=== PATIENT | female | born 1950 | race Caucasian/White ===

== ENCOUNTER 2020-06-24 14:59 | Inpatient (IN) | payer MEDICARE, OTHER ==
[~2020-06-24] VITALS: Ht 152.4 cm; Wt 90.3 kg
--- NOTE | 2020-06-24 15:15 | NUR ---
bib family, L sided chest pain (sharp/stabbing) since last night. Patient a/ox4, breathing even and unlabored, no sob noted. Needs attended. Kept comfortable. Placed to the film sorter.
--- NOTE | 2020-06-24 15:30 | NUR ---
IV LINE ESTABLISHED, BLOOD DRAWN AND SENT TO LAB.
[2020-06-24] MEDS ORDERED: GABA300C PO (15:46)
[2020-06-24] MEDS ORDERED: LINA72CA PO (15:46)
[2020-06-24] MEDS ORDERED: METF-442 PO (15:46)
[2020-06-24] MEDS ORDERED: EMPA10TA PO (15:46)
[2020-06-24] MEDS ORDERED: ATOR20TA PO (15:46)
[2020-06-24] MEDS ORDERED: TRAZ-252 PO (15:46)
[2020-06-24] MEDS ORDERED: DEXL60CA3 PO (15:46)
[2020-06-24] MEDS ORDERED: CARV12.52 PO (15:46)
[2020-06-24] MEDS ORDERED: ASPI-1420 PO (15:46)
[2020-06-24] MEDS ORDERED: GLIM4TAB37 PO (15:46)
[2020-06-24] MEDS ORDERED: HYDR-4077 PO (15:46)
[2020-06-24 15:52] LABS: BASOPHILS # (AUTO) 0.1 /CMM (0.0-0.2); BASOPHILS % (AUTO) 0.7 % (0.0-2.0); EOSINOPHILS % (AUTO) 2.4 % (0.0-6.0); HEMATOCRIT 35 % (33-45); HEMOGLOBIN 11.4 g/dL (11.5-14.8); LYMPHOCYTES # (AUTO) 1.7 /CMM (0.8-4.8); LYMPHOCYTES % (AUTO) 18.9 % (20.0-44.0); MEAN CORPUSCULAR HGB CONC 33 g/dl (31.0-36.0); MEAN CORPUSCULAR VOLUME 84 fL (82-100); MONOCYTES # (AUTO) 0.6 /CMM (0.1-1.30); NEUTROPHILS # (AUTO) 6.2 /CMM (1.8-8.9); PLATELET COUNT (AUTO) 381 /CMM (150-450); RED BLOOD CELL COUNT(AUTO) 4.14 MIL/uL (4.0-5.2); WHITE BLOOD COUNT (AUTO) 8.8 K/uL (4.3-11.0)
[2020-06-24 16:11] LABS: ALANINE AMINOTRANSFERASE 20 U/L (12-78); ALKALINE PHOSPHATASE 50 U/L (46-116); ASPARTATE AMINOTRANSFERASE 18 U/L (15-37); BILIRUBIN,DIRECT 0.1 mg/dL (0.0-0.2); BILIRUBIN,TOTAL 0.3 mg/dL (0.2-1.0); CALCIUM, SERUM 9.8 mg/dL (8.5-10.1); CARBON DIOXIDE 23 mmol/L (21-32); CHLORIDE 97 mmol/L (98-107); CREATININE 0.7 mg/dL (0.6-1.3); GLUCOSE 153 mg/dL (74-106); LIPASE 36 U/L (73-393); POTASSIUM 4.2 mmol/L (3.5-5.1); SODIUM SERUM 133 mmol/L (136-145); TOTAL PROTEIN, SERUM 8.1 g/dL (6.4-8.2); UREA NITROGEN, BLOOD 13 mg/dL (7-18)
--- NOTE | 2020-06-24 16:19 | NUR ---
PAGED [facility].
[2020-06-24] MEDS ORDERED: IOHEXOL-350 100 ML VIAL IV ONE (16:31)
[2020-06-24] MEDS ORDERED: CT SWABBABLE VALVE TRANS SET 1 EA INFUS.SET MC ONE (16:31)
[2020-06-24] MEDS ORDERED: IV NS 0.9% 250 ML IV ONE (16:31)
[2020-06-24] MEDS ORDERED: NITROGLYCERIN 0.4 MG/TAB BOTTLE ONE (16:44)
[2020-06-24] MEDS ORDERED: METOPROLOL TARTRATE INJ 5 MG/5 ML AMPUL ONE (16:45)
--- NOTE | 2020-06-24 16:45 | NUR ---
PATIENT WENT TO RADIOLOGY FOR CT.
--- NOTE | 2020-06-24 16:49 | NUR ---
NURSING SUP GAVE 322-2.
[2020-06-24] MEDS: METOPROLOL TARTRATE INJ 5 MG/5 ML AMPUL IVP PRN ×4 (16:50→17:05)
[2020-06-24] MEDS ORDERED: NITROGLYCERIN 0.4 MG/TAB BOTTLE SL ONE (17:00)
--- NOTE | 2020-06-24 17:10 | NUR ---
CTA PROCEDURE WELL TOLERATED BY THE PT. V/S STABLE, KEPT RESTED AND COMFORTABLE. REPORT GIVEN TO JOCELYNE العراقي FOR JOHANNA.
--- NOTE | 2020-06-24 17:53 | NUR ---
REPORT GIVEN TO GILMA CASANOVA FOR JOHANNA.
[2020-06-24] MEDS ORDERED: DEXTROSE 50%-WATER 50 ML DISP.SYRIN IV PRN (18:00)
[2020-06-24] MEDS ORDERED: DOCUSATE SODIUM 100 MG CAPSULE PO PRN (18:00)
[2020-06-24] MEDS ORDERED: NITROGLYCERIN 0.4 MG/TAB BOTTLE SL PRN (18:00)
[2020-06-24] MEDS ORDERED: MORPHINE SULFATE INJ 2 MG/ML DISP.SYRIN IV PRN (18:00)
[2020-06-24] MEDS ORDERED: ACETAMINOPHEN 325 MG TABLET PO PRN (18:00)
[2020-06-24] MEDS ORDERED: ONDANSETRON HCL/PF 4 MG/2 ML VIAL IVP PRN (18:00)
[2020-06-24] MEDS ORDERED: MAG HYDROX/AL HYDROX/SIMETH 30 ML UDC PO PRN (18:00)
--- NOTE | 2020-06-24 18:58 | NUR ---
patient transferred to room 322-2 via acls protocol. Patient endorsed to Libby CASANOVA. Patient in stable condition.
[2020-06-24 19:00] VITALS: BP 181/85
--- NOTE | 2020-06-24 19:00 | NUR ---
RN NOTES PATIENT IN THE ROOM A/O X3/ ARMENIA SPEAKER FEMALE. TELE MONITOR ON, VS TAKEN BP 181/85, P-74, R-20, T-98, O2-97 ROOM AIR. PATIENT REFUSED PAIN AT THIS TIME . PATIENT AMBULATORY, NEED ASSIST GOING BATHROOM. IV ACCESS ON RIGHT AC AREA G#18 INTACT. CALL LIGHT WITHIN TO REACH. BELONGING NEXT TO THE BED. ENDORSED ONCOMING NURSE FOLLOW PLAN OF CARE AND ADMISSION COMPUTER QUESTIONERS.
--- NOTE | 2020-06-24 20:44 | NUR ---
PRINCIPAL CLOUD ARCHITECT NOTES PATIENT IN ROOM WITH VISITOR. PATIENT STANDING UP, AMBULATING. NO S/S OF DISTRESS. NO C/O PAIN REGAN. V/S FOLLOW: BP- 154/81, T- 98.0, P- 83, RR- 20, 02 SAT- 98%. SAFETY IN PLACE: BED IN LOWEST, LOCKED POSITION, CALL LIGHT WITHIN REACH. WILL CONTINUE TO MONITOR.
[2020-06-24 20:47] VITALS: BP 154/81
[2020-06-24] MEDS: TRAZODONE 50 MG TABLET PO SCH ×2 (21:36→22:03)
[2020-06-24] MEDS: GABAPENTIN 300 MG CAPSULE PO SCH (22:03)
[2020-06-24] MEDS: ATORVASTATIN 10 MG TABLET PO SCH (22:04)
[2020-06-24] MEDS: BLOOD SUGAR DIAGNOSTIC 1 EACH STRIP VI SCH (22:11)
[2020-06-24] MEDS: *INSULIN REGULAR(HUMULIN R)HUM 100 UNIT/ML VIAL SQ PRN (22:34)
--- NOTE | 2020-06-24 22:35 | NUR ---
INSTRUCTIONAL SUPPORT ASSISTANT NOTES PATIENT BS @[phone]. GIVEN 6 UNITS OF INSULIN PER SLIDING SCALE. WILL MONITOR.
[2020-06-24 23:27] VITALS: BP 154/81
[2020-06-25] VITALS (21 sets, daily range): BP systolic 130–192; BP diastolic 61–114
[2020-06-25] MEDS: BLOOD SUGAR DIAGNOSTIC 1 EACH STRIP VI SCH ×4 (05:26→21:27)
--- NOTE | 2020-06-25 06:10 | NUR ---
CLINICAL INFORMATICS MANAGER NOTES PATIENT BS: 117. NO INSULIN PER SLIDING SCALE.
--- NOTE | 2020-06-25 06:11 | NUR ---
GEM EXPERT CLOSING 322 PATIENT IN BED WITH EYES CLOSED. A/OX4. PATIENT ABLE TO MAKE NEEDS KNOWN. ALL NEEDS ATTENDED. NO S/S OF DISTRESS. NO C/O PAIN. TELE MONITOR READING SR IN THE 70'S. ACCUCHECKS DONE. ALL SCHED MEDS ADMINISTERED. SAFETY KEPT IN PLACE THE WHOLE SHIFT: BED IN LOWEST, LOCKED POSITION; CALL LIGHT WITHIN REACH. NO SIGNIFICANT CHANGE SINCE LAST SHIFT. WILL ENDORSE CARE TO MORNING SHIFT NURSE. ENDORSED THE HOLD OF METFORMIN FOR 48 HOURS.
[2020-06-25 06:52] LABS: BASOPHILS # (AUTO) 0.1 /CMM (0.0-0.2); BASOPHILS % (AUTO) 0.8 % (0.0-2.0); EOSINOPHILS % (AUTO) 2.9 % (0.0-6.0); HEMATOCRIT 34 % (33-45); HEMOGLOBIN 11.3 g/dL (11.5-14.8); LYMPHOCYTES # (AUTO) 1.7 /CMM (0.8-4.8); LYMPHOCYTES % (AUTO) 24.1 % (20.0-44.0); MEAN CORPUSCULAR HGB CONC 33 g/dl (31.0-36.0); MEAN CORPUSCULAR VOLUME 84 fL (82-100); MONOCYTES # (AUTO) 0.6 /CMM (0.1-1.30); MONOCYTES % (AUTO) 8.2 % (2.0-12.0); NEUTROPHILS # (AUTO) 4.4 /CMM (1.8-8.9); PLATELET COUNT (AUTO) 362 /CMM (150-450); RED BLOOD CELL COUNT(AUTO) 4.03 MIL/uL (4.0-5.2); WHITE BLOOD COUNT (AUTO) 6.9 K/uL (4.3-11.0)
--- NOTE | 2020-06-25 07:30 | NUR ---
TELE/RN NOTES RECEIVED PATIENT ON BED, AWAKE ALERT AND ORIENTED X4. PATIENT IS ON ROOM AIR. PATIENT IN NO APPARENT RESPIRATORY DISTRESS NOTED. NO COMPLAINED OF PAIN AT THIS TIME. SINUS RHYTHM 66 BPM. WILL CONTINUE TO MONITOR.
[2020-06-25 07:33] LABS: ALBUMIN 3.8 g/dL (3.4-5.0); BILIRUBIN,TOTAL 0.3 mg/dL (0.2-1.0); CALCIUM, SERUM 9.7 mg/dL (8.5-10.1); CREATININE 0.6 mg/dL (0.6-1.3); PHOSPHORUS 4.1 mg/dL (2.5-4.9); POTASSIUM 3.8 mmol/L (3.5-5.1); TOTAL PROTEIN, SERUM 7.8 g/dL (6.4-8.2)
[2020-06-25 07:37] LABS: THYROID STIMULATING HORMONE 3.517 uIU/mL (0.358-3.74)
[2020-06-25] MEDS ORDERED: METFORMIN 500 MG TABLET PO SCH (09:00)
[2020-06-25] MEDS ORDERED: Medication Not On Formulary EA (Linaclotide (Linzess) 72 MCG) PO SCH (09:00)
[2020-06-25] MEDS ORDERED: Medication Not On Formulary EA (Empagliflozin (Jardiance) 10 MG) PO SCH (09:00)
[2020-06-25] MEDS: GLIMEPIRIDE 4 MG TABLET PO SCH ×2 (09:10→16:44)
[2020-06-25] MEDS: PANTOPRAZOLE 40 MG TABLET.DR PO SCH (09:10)
[2020-06-25] MEDS: ASPIRIN EC 81 MG TABLET.DR PO SCH (09:11)
[2020-06-25] MEDS: CARVEDILOL 12.5 MG TABLET PO SCH ×2 (09:11→16:43)
[2020-06-25] MEDS: hydrALAZINE HCL 50 MG TABLET PO SCH ×2 (09:11→16:44)
--- NOTE | 2020-06-25 12:00 | NUR ---
TELE/RN NOTES BS 264MG/DL PATIENT IS ON NPO INSULIN IS WITHHELD.
[2020-06-25] MEDS ORDERED: HEPARIN INFUSION/D5W 500 ML IV ONE ×2 (12:01→12:02)
[2020-06-25] MEDS ORDERED: IV SET PRIMARY PUMP SET 1 EA INFUS.SET MC ONE (12:05)
[2020-06-25] MEDS ORDERED: IV NS 0.9% 1,000 ML ONE (12:05)
--- NOTE | 2020-06-25 12:17 | NUR ---
TELE/RN NOTES PATIENT IS ALERT AND ORIENTED X4. PATIENT IS ON ROOM AIR. PATIENT IN NO APPARENT RESPIRATORY DISTRESS NOTED. NO COMPLAINED OF PAIN AT THIS TIME. PATIENT PLATE GLASS INSTALLER BY PATI RN FOR CARDIAC CATH.
[2020-06-25] MEDS ORDERED: NITROGLYCERIN ICAR 1,000 MCG/10 ML VIAL ICAR ONE (12:19)
[2020-06-25] MEDS ORDERED: IODIXANOL 150 ML IV ONE ×2 (12:19→13:39)
[2020-06-25] MEDS ORDERED: VERAPAMIL HCL IV 5 MG/2 ML VIAL ONE (12:19)
[2020-06-25] MEDS ORDERED: LIDOCAINE HCL/MPF 1% 30 ML VIAL IJ ONE (12:20)
[2020-06-25] MEDS ORDERED: HEPARIN SODIUM, PORCINE 1,000 UNIT/ML VIAL ONE (12:30)
[2020-06-25] MEDS ORDERED: MIDAZOLAM HCL 2 MG/2ML VIAL ONE (12:57)
[2020-06-25] MEDS ORDERED: FENTANYL PF 100MCG/2ML AMPUL ONE (12:57)
[2020-06-25] MEDS ORDERED: IODIXANOL 320MG/ML 50 ML IV ONE (13:21)
[2020-06-25] MEDS ORDERED: BIVALIRUDIN 250 MG/VIAL IV ONE (13:21)
[2020-06-25] MEDS ORDERED: IV NS 0.9% 50 ML IV ONE (13:22)
[2020-06-25] MEDS ORDERED: TICAGRELOR 90 MG TABLET PO ONE (13:23)
--- NOTE | 2020-06-25 14:55 | NUR ---
ICU/RN PT TRANSFER FROM FUR CLEANER.AWAKE,ALERT.V/S STABLE AFEBRILE .NO PAIN REPORTED AT THIS TIME.BS-190.SR-SB ON MONITOR.RIGHT WRIST TR BEND WITH A MINIMAL AMOUNT OF BLOODY DISCHARGE.WRIST IS SWOLLEN.PT IS NPO.FAMILY AT BEDSIDE.
--- NOTE | 2020-06-25 16:00 | NUR ---
ICU/RN PT C/O OF HOT FLUSHES IN THE HEART.BP 190/80.HR DECREASED 38-40 BPM .DUE MEDS ARE GIVEN ORDERED.DR FRANCOIS NOTIFIED.EKG ORDERED.FAMILY AT BED SIDE. ATIVAN ORDERED.PTREFUSEDMORHINE AND ATIVAN.CONTINUE MONITORING.
--- NOTE | 2020-06-25 16:20 | NUR ---
RN NOTES REPORT WAS GIVEN TO HAYLEY HUMAN RESOURCES DESIGNATE.
[2020-06-25] MEDS ORDERED: IV NS 0.9% 1,000 ML IV ONE (17:00)
[2020-06-25] MEDS ORDERED: LORAZEPAM 1 MG TABLET PO PRN (18:00)
[2020-06-25] MEDS: *INSULIN REGULAR(HUMULIN R)HUM 100 UNIT/ML VIAL SQ PRN ×2 (18:11→21:43)
--- NOTE | 2020-06-25 18:40 | NUR ---
ICU/RN PM CARE PROVIDED.PT USE BEDPAN WITH GOOD URINE OUTPUT .BP STABLE.PT EATS 100% FROM HER DINNER TRAY.TR BEND STILL ON PT HAS OOZING BLOOD .WRIST RED AND SWOLLEN.CONTINUE TO MONITOR.
--- NOTE | 2020-06-25 19:30 | NUR ---
RN NOTE RECEIVED PATIENT IN BED WITH DAUGHTER AT BEDSIDE, IN NO S/SX OF ACUTE DISTRESS AT THIS TIME. NO SOB NOTED. PATIENT'S BREATHING IS EVEN AND UNLABORED. SATURATION 98% ON ROOM AIR, SR ON THE MONITOR, HR IS 74. NOTED IV SITE L HAND 20G, AND RAC 18G, ALL HUBS PATENT AND FLUSHING WELL, NO S/S OF INFECTION OR INFILTRATION WITH NS INFUSING AT 100 ML/HR. PATIENT S/P CNC MACHINE PROGRAMMER TODAY, TR BAND ON INFLATED WITH TOTAL OF 14 ML, 8 ML, AND ADDITIONAL 4 ML REMOVED SUBSEQUENTLY BY BLANQUITA CASANOVA. NO SIGN OF ACTIVE BLEEDING NOTED. SAFETY MEASURES IMPLEMENTED. PATIENT BED ALARM IS ON. HEAD OF BED ELEVATED. BED IS LOCKED, IN LOWEST POSITION AND SIDE RAILS UP. CALL LIGHT WITHIN REACH OF THE PATIENT. WILL CONTINUE TO MONITOR AND REASSESS FOR ANY CHANGES.
[2020-06-25] MEDS: TRAZODONE 50 MG TABLET PO SCH (21:04)
[2020-06-25] MEDS: ATORVASTATIN 10 MG TABLET PO SCH (21:04)
[2020-06-25] MEDS: TICAGRELOR 90 MG TABLET PO SCH (21:04)
[2020-06-25] MEDS: GABAPENTIN 300 MG CAPSULE PO SCH (21:04)
--- NOTE | 2020-06-25 22:40 | NUR ---
RN NOTE TR BAND REMOVED COMPLETELY WITH SUPERVISOR SOAKERS PRESENT. NO SIGN OF ACTIVE BLEEDING NOTED. SITE WAS CLEANSED AND COVERED WITH TRANSPARENT DRESSING. WILL CONTINUE TO OBSERVE AND MONITOR FOR CHANGES.
--- NOTE | 2020-06-25 23:00 | NUR ---
RN NOTE NOTED SBP SUSTAINED AT 170-180'S. DR REEYS WAS NOTIFIED. ORDERS RECEIVED FOR HYDRALAZINE 10 MG IV Q6H PRN FOR SBP >170. OPENSTACK DEVELOPER MADE AWARE.
[2020-06-25] MEDS ORDERED: hydrALAZINE HCL IV 20 MG VIAL IV PRN (23:30)
[2020-06-26] VITALS (19 sets, daily range): BP systolic 123–187; BP diastolic 51–94
[2020-06-26] MEDS ORDERED: TEMAZEPAM 15 MG CAPSULE PO PRN (01:00)
[2020-06-26] MEDS ORDERED: TEMAZEPAM 7.5 MG CAPSULE PO PRN (01:00)
--- NOTE | 2020-06-26 01:00 | NUR ---
RN NOTE PATIENT STATED SHE IS UNABLE TO SLEEP. REQUESTING FOR MEDICATION TO HELP HER GET TO SLEEP. DR REYES WAS NOTIFIED, ORDERS RECEIVED BY PRECISION FARMING COORDINATOR FOR RESTORIL 7.5 MG, AND 15 MG PO HS PRN FOR SLEEP. WILL CONTINUE TO REASSESS.
[2020-06-26 04:30] LABS: BASOPHILS % (AUTO) 0.6 % (0.0-2.0); EOSINOPHILS % (AUTO) 1.6 % (0.0-6.0); HEMATOCRIT 34 % (33-45); HEMOGLOBIN 11.4 g/dL (11.5-14.8); LYMPHOCYTES # (AUTO) 1.2 /CMM (0.8-4.8); LYMPHOCYTES % (AUTO) 13.4 % (20.0-44.0); MEAN CORPUSCULAR HGB CONC 33 g/dl (31.0-36.0); MEAN CORPUSCULAR VOLUME 84 fL (82-100); MONOCYTES # (AUTO) 0.7 /CMM (0.1-1.30); MONOCYTES % (AUTO) 7.8 % (2.0-12.0); NEUTROPHILS # (AUTO) 6.8 /CMM (1.8-8.9); NEUTROPHILS % (AUTO) 76.6 % (43.0-81.0); PLATELET COUNT (AUTO) 360 /CMM (150-450); RED BLOOD CELL COUNT(AUTO) 4.08 MIL/uL (4.0-5.2); WHITE BLOOD COUNT (AUTO) 8.9 K/uL (4.3-11.0)
[2020-06-26 05:02] LABS: CALCIUM, SERUM 8.9 mg/dL (8.5-10.1); CREATININE 0.6 mg/dL (0.6-1.3); MAGNESIUM 1.8 mg/dL (1.8-2.4); PHOSPHORUS 3.1 mg/dL (2.5-4.9); POTASSIUM 3.5 mmol/L (3.5-5.1)
--- NOTE | 2020-06-26 07:40 | NUR ---
ICU/RN PT IS AWAKE ,ALERT.ON ROOM AIR SAT O2-97%.V/S STABLE,AFEBRILE.NO PAIN REPORTED AT THIS TIME.PT POST WASHING MACHINE OPERATOR 06/25/20.RIGHT WRIST SWOLLEN AND RED NO S/S OF BLEEDING. LABS REVIEW.
[2020-06-26] MEDS: BLOOD SUGAR DIAGNOSTIC 1 EACH STRIP VI SCH ×2 (07:47→11:48)
[2020-06-26] MEDS: INSULIN REGULAR, HUMAN 100 UNIT/ML 3 ML VIAL SQ PRN ×2 (07:50→11:52)
[2020-06-26] MEDS: GLIMEPIRIDE 4 MG TABLET PO SCH (08:10)
[2020-06-26] MEDS: CARVEDILOL 12.5 MG TABLET PO SCH (08:10)
[2020-06-26] MEDS: PANTOPRAZOLE 40 MG TABLET.DR PO SCH (08:11)
[2020-06-26] MEDS: ASPIRIN EC 81 MG TABLET.DR PO SCH (08:11)
[2020-06-26] MEDS: hydrALAZINE HCL 50 MG TABLET PO SCH (08:11)
[2020-06-26] MEDS: TICAGRELOR 90 MG TABLET PO SCH (08:12)
--- NOTE | 2020-06-26 09:00 | NUR ---
ICU/RN DUE MEDS ARE GIVEN ORDERED.
[2020-06-26] MEDS ORDERED: ATOR40TA PO (10:22)
--- NOTE | 2020-06-26 12:40 | NUR ---
ICU/RN PT D/C HOME IN STABLE CONDITION.LEFT VIA CAR WITH DAUGHTER IN STABLE CONDITION.ALL INSTRUCTIONS ARE GIVEN.
[2020-06-26] MEDS ORDERED: METFORMIN 500 MG TABLET PO SCH (17:00)
== END 2020-06-26 12:38 | disposition home or self-care (01) | DRG 247 ==
LOC: ER 15:08 → TELE 18:00 → ICU 06-25 16:06
PROVIDERS: ADMIT Registered Nurse; ATTEND Registered Nurse
PROC: 027135Z Dilation of Coronary Artery, Two Arteries with Two Drug-eluting Intraluminal Devices, Percutaneous Approach (ICD-10-PCS; principal; 2020-06-25)
PROC: 4A023N7 Measurement of Cardiac Sampling and Pressure, Left Heart, Percutaneous Approach (ICD-10-PCS; 2020-06-25)
PROC: B211YZZ Fluoroscopy of Multiple Coronary Arteries using Other Contrast (ICD-10-PCS; 2020-06-25)
DX: I25.110 Atherosclerotic heart disease of native coronary artery with unstable angina pectoris (principal); E78.5 Hyperlipidemia, unspecified; I10 Essential (primary) hypertension; E11.65 Type 2 diabetes mellitus with hyperglycemia; E66.01 Morbid (severe) obesity due to excess calories; M17.0 Bilateral primary osteoarthritis of knee; Z79.84 Long term (current) use of oral hypoglycemic drugs; Z68.38 Body mass index [BMI] 38.0-38.9, adult; Z20.822 Contact with and (suspected) exposure to COVID-19
CPT/HCPCS: 36415; 71045-TC; 75574; 80048-TC; 80053-TC; 80061-TC; 80076-TC; 82962-TC; 83690-TC; 83735-TC; 84100-TC; 84443-TC; 84484-TC; 85025-TC; 85730-TC; 87081-TC; 92980; 92981; 93307-TC; 97116-TC; 97530-TC; C1725; C1887; C9803; G0378; G0500; J0360; J1644; J1815; J2250; J3010; J3490; J7030; J7050; Q9967

== ENCOUNTER 2020-09-22 18:01 | Inpatient (IN) | payer MEDICARE, OTHER ==
[~2020-09-22] VITALS: Ht 160 cm; Wt 78.9 kg
[~2020-09-22 18:01] MED LIST: ASPI-1420 PO; ATOR40TA PO; CARV12.52 PO; DEXL60CA3 PO; EMPA10TA PO; GABA300C PO; GLIM4TAB37 PO; HYDR-4077 PO; LINA72CA PO; METF-442 PO; TRAZ-252 PO
--- NOTE | 2020-09-22 19:00 | NUR ---
PT BIB FAMILY FOR VOMITING AND NOTED HIGH BLOOD PRESSURE X 3 DAYS. PT ALERT AND ORIENTED X3. ONLY SPEAKS VATICAN CITIZEN. AMBULATORY WITH ASSISTANCE. WITH NON LABORED BREATHING.
[2020-09-22 20:04] LABS: BASOPHILS # (AUTO) 0.1 K/uL (0.0-0.2); BASOPHILS % (AUTO) 0.7 % (0.0-2.0); EOSINOPHILS % (AUTO) 0.5 % (0.0-6.0); HEMATOCRIT 34 % (33-45); HEMOGLOBIN 11.6 g/dL (11.5-14.8); LYMPHOCYTES # (AUTO) 1.9 K/uL (0.8-4.8); LYMPHOCYTES % (AUTO) 15.9 % (20.0-44.0); MEAN CORPUSCULAR HGB CONC 35 g/dl (31.0-36.0); MEAN CORPUSCULAR VOLUME 79 fL (82-100); MONOCYTES # (AUTO) 0.8 K/uL (0.1-1.30); MONOCYTES % (AUTO) 6.6 % (2.0-12.0); NEUTROPHILS # (AUTO) 8.9 K/uL (1.8-8.9); NEUTROPHILS % (AUTO) 76.3 % (43.0-81.0); PLATELET COUNT (AUTO) 526 K/uL (150-450); RED BLOOD CELL COUNT(AUTO) 4.28 MIL/uL (4.0-5.2); WHITE BLOOD COUNT (AUTO) 11.7 K/uL (4.3-11.0)
--- NOTE | 2020-09-22 20:06 | NUR ---
XRAY AT BEDSIDE
[2020-09-22 20:13] LABS: CALCIUM, SERUM 9.4 mg/dL (8.5-10.1); CARBON DIOXIDE 22 mmol/L (21-32); CHLORIDE 81 mmol/L (98-107); CREATININE 0.5 mg/dL (0.6-1.3); GLUCOSE 195 mg/dL (74-106); POTASSIUM 3.8 mmol/L (3.5-5.1); UREA NITROGEN, BLOOD 9 mg/dL (7-18)
[2020-09-22 20:21] LABS: SODIUM SERUM 116 mmol/L (136-145)
--- NOTE | 2020-09-22 20:30 | NUR ---
SODIUM 116 MD NOTIED
--- NOTE | 2020-09-22 20:37 | NUR ---
COVID SWAB DONE SENT FOR LAB
--- NOTE | 2020-09-22 20:44 | NUR ---
PT GOING TO CT
[2020-09-22] MEDS ORDERED: IV NS 0.9% 250 ML IV ONE (20:45)
[2020-09-22] MEDS ORDERED: IOHEXOL-300 100 ML VIAL IV ONE (20:45)
[2020-09-22] MEDS ORDERED: Z GUARD REMEDY 2 OZ OINT TP PRN (22:30)
[2020-09-22] MEDS ORDERED: MAGNESIUM HYDROXIDE 30 ML UDC PO PRN (22:30)
[2020-09-22] MEDS ORDERED: MAG HYDROX/AL HYDROX/SIMETH 30 ML UDC PO PRN (22:30)
[2020-09-22] MEDS ORDERED: ACETAMINOPHEN 325 MG TABLET PO PRN (22:30)
[2020-09-22] MEDS ORDERED: ONDANSETRON HCL/PF 4 MG/2 ML VIAL IVP PRN (22:30)
--- NOTE | 2020-09-22 22:31 | NUR ---
MAGALY 106
--- NOTE | 2020-09-22 22:38 | NUR ---
PLEBOTOMIST AT BEDSIDE.
--- NOTE | 2020-09-22 22:38 | NUR ---
DAUGHTER ANI [phone]
--- NOTE | 2020-09-22 22:45 | NUR ---
RN NOTE REPORT RECEIVED FROM JOCELYNE AVALOS.
--- NOTE | 2020-09-22 22:46 | NUR ---
ROOM CHANGED TO 112
--- NOTE | 2020-09-22 23:05 | NUR ---
RN NOTE PT TRANSFERRED FROM ER VIA GURNEY. PT IS ON ROOM AIR SHOWING NO S/S OF RESP DISTRESS/SOB. PT IS A&OX4, CITIZEN OF [place] SPEAKING. PT IS NSR ON TELE MONITOR. SKIN INTACT. PT ON CLEAR LIQUID DIET. IV LINE ON LEFT HAND GAUGE 18 FLUSHED, PATENT, AND INTACT WITH NO INFILTRATION. ALL SAFETY MEASURES IMPLEMENTED. CALL LIGHT WITHIN REACH. BED ALARM ON. BED LOCKED AND IN LOWEST POSITION. WILL CONTINUE TO MONITOR THROUGHOUT THE SHIFT.
--- NOTE | 2020-09-22 23:13 | NUR ---
PT TRANSFERRED TO 112 PER ACLS.
[2020-09-22] MEDS ORDERED: CEFTRIAXONE 1 G VIAL ONE (23:17)
[2020-09-22] MEDS: IV NS 0.9% 1,000 ML IV PRN (23:19)
[2020-09-22] MEDS: CEFTRIAXONE 1 G in IV D5W 50 ML IV SCH (23:22)
[2020-09-23] VITALS: BP 149/72
[2020-09-23 04:00] VITALS: BP 132/64
--- NOTE | 2020-09-23 04:00 | NUR ---
0400 Dr. Cervantes made aware patient voided 3x with order to dc saunders cath order. order noted and carried out.
[2020-09-23 06:26] LABS: BASOPHILS % (AUTO) 0.3 % (0.0-2.0); EOSINOPHILS % (AUTO) 0.8 % (0.0-6.0); HEMATOCRIT 32 % (33-45); LYMPHOCYTES # (AUTO) 1.2 K/uL (0.8-4.8); LYMPHOCYTES % (AUTO) 14.6 % (20.0-44.0); MEAN CORPUSCULAR HGB CONC 35 g/dl (31.0-36.0); MEAN CORPUSCULAR VOLUME 79 fL (82-100); MONOCYTES # (AUTO) 0.8 K/uL (0.1-1.30); MONOCYTES % (AUTO) 9.6 % (2.0-12.0); NEUTROPHILS # (AUTO) 6.2 K/uL (1.8-8.9); NEUTROPHILS % (AUTO) 74.7 % (43.0-81.0); PLATELET COUNT (AUTO) 427 K/uL (150-450); RED BLOOD CELL COUNT(AUTO) 3.97 MIL/uL (4.0-5.2); WHITE BLOOD COUNT (AUTO) 8.2 K/uL (4.3-11.0)
--- NOTE | 2020-09-23 06:31 | NUR ---
RN NOTE NO CHANGES IN PT CONDITION DURING SHIFT. PT IS ON ROOM AIR SHOWING NO SIGNS OF RESP DISTRESS/SOB. PT IS A&OX4, NSR ON TELE MONITOR. SKIN INTACT. PT IS ON CLEAR LIQUID DIET. IV LINE ON LEFT HAND GAUGE 18 FLUSHED, PATENT, AND INTACT WITH NO INFILTRATION. ALL DUE MEDS GIVEN ORDERED. PT KEPT CLEAN AND COMFORTABLE. ALL SAFETY MEASURES IMPLEMENTED. CALL LIGHT WITHIN REACH. BED ALARM ON. BED LOCKED AND IN LOWEST POSITION. WILL ENDORSE TO MORNING SHIFT RN FOR JOHANNA.
[2020-09-23 06:43] LABS: CALCIUM, SERUM 8.9 mg/dL (8.5-10.1); CARBON DIOXIDE 25 mmol/L (21-32); CHLORIDE 90 mmol/L (98-107); CREATININE 0.4 mg/dL (0.6-1.3); GLUCOSE 106 mg/dL (74-106); MAGNESIUM 1.9 mg/dL (1.8-2.4); POTASSIUM 3.2 mmol/L (3.5-5.1); SODIUM SERUM 125 mmol/L (136-145); UREA NITROGEN, BLOOD 8 mg/dL (7-18)
[2020-09-23 06:49] LABS: CHOLESTEROL 141 mg/dL (<200); HDL CHOLESTEROL 54 mg/dL (40-60); LDL 69 mg/dL (0-99); THYROID STIMULATING HORMONE 1.789 uIU/mL (0.358-3.74); TRIGLYCERIDES 100 mg/dL (30-150)
[2020-09-23] MEDS ORDERED: DEXTROSE 50%-WATER 50 ML DISP.SYRIN IV PRN (07:00)
--- NOTE | 2020-09-23 08:04 | NUR ---
MAGALY RN NOTE PATIENT ALERT , ORIENTED . PT IS ON ROOM AIR SHOWING NO SIGNS OF RESP DISTRESS/SOB. PT IS A&OX4, NSR ON TELE MONITOR. SKIN INTACT. PT IS ON CLEAR LIQUID DIET. IV LINE ON LEFT HAND GAUGE 18 FLUSHED, PATENT, AND INTACT WITH NO INFILTRATION. ASSISTED TO BR , UA COLLECTED ORDERED. PT KEPT CLEAN AND COMFORTABLE. ALL SAFETY MEASURES IMPLEMENTED. CALL LIGHT WITHIN REACH. BED ALARM ON. BED LOCKED AND IN LOWEST POSITION. ABLE TO EAT SELF
[2020-09-23] MEDS: ASPIRIN EC 81 MG TABLET.DR PO SCH (08:17)
[2020-09-23] MEDS: CARVEDILOL 12.5 MG TABLET PO SCH ×2 (08:18→16:24)
[2020-09-23] MEDS: hydrALAZINE HCL 50 MG TABLET PO SCH ×2 (08:18→16:25)
[2020-09-23] MEDS: INSULIN REGULAR, HUMAN 100 UNIT/ML 3 ML VIAL SQ PRN ×4 (08:26→22:24)
[2020-09-23] MEDS: ATORVASTATIN 40 MG TABLET PO SCH (08:28)
[2020-09-23] MEDS: BLOOD SUGAR DIAGNOSTIC 1 EACH STRIP IN SCH ×4 (08:29→22:25)
[2020-09-23] MEDS ORDERED: PANTOPRAZOLE 40 MG VIAL IV SCH (09:00)
[2020-09-23 09:08] VITALS: BP 158/68
[2020-09-23 09:23] LABS: BILIRUBIN,URINE NEGATIVE (NEGATIVE); LEUKOCYTE ESTERASE ,URINE NEGATIVE (NEGATIVE); NITRITE, URINE NEGATIVE (NEGATIVE); PROTEIN,URINE TRACE mg/dl (NEGATIVE); UGLUCOSE NEGATIVE (NEGATIVE); UROBILINOGEN,URINE 0.2 EU/dL (0.2)
[2020-09-23 09:25] LABS: COLOR,URINE STRAW (YELLOW)
[2020-09-23] MEDS: POTASSIUM CHLORIDE 20 MEQ TAB.PRT.SR PO SCH ×2 (09:45→10:35)
[2020-09-23 10:22] LABS: RBC,URINE 0-2 /HPF (0-2)
[2020-09-23 10:23] LABS: BACTERIA,URINE Rare /HPF (None Seen); SQUAMOUS EPITHELIAL CELL,UR Rare /HPF (None Seen); WBC,URINE 0-2 /HPF (0-3)
[2020-09-23] MEDS ORDERED: TICAGRELOR 90 MG TABLET PO SCH (12:00)
--- NOTE | 2020-09-23 12:00 | NUR ---
telegraphic typewriter repairer note per dr tammy perkins cardiac diet , aware hat patient was on brilinta 90 mg ok to order , assisted to bsc able to urinate well ,na today 126, aware of it
[2020-09-23 12:18] VITALS: BP 158/65
[2020-09-23 13:36] LABS: IRON, SERUM 52 ug/dl (50-175); TOTAL IRON BINDING CAPACITY 300 ug/dl (250-450)
[2020-09-23 13:50] LABS: CREATININE, URINE < 13.0 MG/DL (30.0-125.0); URINE SODIUM, RANDOM 7 mmol/l (40-220)
[2020-09-23] MEDS: IV NS 0.9% 1,000 ML IV PRN (14:26)
--- NOTE | 2020-09-23 15:04 | NUR ---
HARSHAD CASANOVA NOTE US DONE ORDERED WILL F\U Addendum: 09/23/20 at 1527 by ANIVAL KLEIN RN CALLED TO MEGHANN CASANOVA WASTE MANAGEMENT SPECIALIST ABOUT 500 ML RETAINING URINE FROM US ,OK TO START ON FLOMAX ,ORDER CARRIED OUT
[2020-09-23 16:03] VITALS: BP 129/69
--- NOTE | 2020-09-23 16:51 | NUR ---
SUPERVISOR WATERPROOFING NOTE ROUNDS MADE ,CONT ON IVF ,ASSISTED TO BSC KEEP CLEAN DRY , CALL LIGHT WITHIN REACH
[2020-09-23] MEDS ORDERED: SORBITOL SOLUTION 30 ML PO ONE (17:00)
[2020-09-23] MEDS: IV NS 0.9% 1,000 ML IV SCH (17:05)
--- NOTE | 2020-09-23 18:37 | NUR ---
telesales supervisor note resting comfortably , able to eat dinner , on ivf as ordered , not in distress, bed in lowest and locked position , will cont to monitor
[2020-09-23 20:00] VITALS: BP 127/45
--- NOTE | 2020-09-23 20:00 | NUR ---
RN NOTE PT IS IN BED A/AX4 GREEK AND WELSH SPEAKING ON ROOM AIR SATING 100% NO SIGNS OF RESP DISTRESS/SOB. , NSR ON TELE MONITOR. SKIN INTACT. IV LINE ON LEFT HAND GAUGE 18 FLUSHED, PATENT, AND INTACT WITH NO INFILTRATION. ALL DUE MEDS GIVEN ORDERED. PT KEPT CLEAN AND COMFORTABLE. ALL SAFETY MEASURES IMPLEMENTED. CALL LIGHT WITHIN REACH. BED ALARM ON. BED LOCKED AND IN LOWEST POSITION. WILL CONTINUE TO MONITOR PTS ,V/S STABLE AFEBRILE.
[2020-09-23] MEDS: CEFTRIAXONE 1 G in IV D5W 50 ML IV SCH (21:32)
[2020-09-23] MEDS: TICAGRELOR 90 MG TABLET PO SCH (21:32)
[2020-09-23] MEDS: GABAPENTIN 300 MG CAPSULE PO SCH (22:08)
--- NOTE | 2020-09-23 22:26 | NUR ---
timmy rn notes Blood sugar at 10pm is 290 mg/dl 6 units of recular insulin given per sliding scale will check bs again in am.
[2020-09-24] VITALS: BP 158/59
[2020-09-24 04:00] VITALS: BP 166/85
--- NOTE | 2020-09-24 06:42 | NUR ---
MAGALY RN NOTES NO JOHANNA AT TIME ENDORSE TO RN DAY SHIFT FOR CONTINUITY OF CARE.
--- NOTE | 2020-09-24 07:05 | NUR ---
RN NOTE RECEIVED PT ON BE, A/AX4 CITIZEN OF [place] AND [place] SPEAKING ON ROOM AIR SATING 100% NO SIGNS OF RESP DISTRESS/SOB. , NSR ON TELE MONITOR. SKIN INTACT. IV LINE ON LEFT HAND GAUGE 18 FLUSHED, PATENT, AND INTACT WITH NO INFILTRATION, ALL SAFETY MEASURES IMPLEMENTED. CALL LIGHT WITHIN REACH. BED ALARM ON. BED LOCKED AND IN LOWEST POSITION. WILL CONTINUE TO MONITOR CLOSELY .
[2020-09-24 08:00] VITALS: BP 104/68
[2020-09-24 08:40] LABS: CALCIUM, SERUM 9.1 mg/dL (8.5-10.1); CREATININE 0.6 mg/dL (0.6-1.3); POTASSIUM 3.8 mmol/L (3.5-5.1)
[2020-09-24] MEDS: INSULIN REGULAR, HUMAN 100 UNIT/ML 3 ML VIAL SQ PRN ×4 (08:45→21:07)
[2020-09-24] MEDS: BLOOD SUGAR DIAGNOSTIC 1 EACH STRIP IN SCH ×4 (08:45→21:05)
[2020-09-24] MEDS: ASPIRIN EC 81 MG TABLET.DR PO SCH (08:46)
[2020-09-24] MEDS: hydrALAZINE HCL 50 MG TABLET PO SCH ×2 (08:46→17:02)
[2020-09-24] MEDS: CARVEDILOL 12.5 MG TABLET PO SCH ×2 (08:46→17:01)
[2020-09-24] MEDS: ATORVASTATIN 40 MG TABLET PO SCH (08:46)
[2020-09-24] MEDS: TAMSULOSIN 0.4 MG CAP.SR.24H PO SCH (08:46)
[2020-09-24] MEDS: TICAGRELOR 90 MG TABLET PO SCH ×2 (08:48→17:03)
[2020-09-24] MEDS: IV NS 0.9% 1,000 ML IV SCH (10:39)
[2020-09-24] MEDS ORDERED: POTASSIUM CHLORIDE 20 MEQ TAB.PRT.SR PO ONE ×2 (11:30→16:00)
--- NOTE | 2020-09-24 11:47 | NUR ---
RN NOTES DR LESTER SAPP REGARDING US BLADDER RESULTS .
[2020-09-24 12:00] VITALS: BP 151/67
[2020-09-24 16:00] VITALS: BP 120/72
[2020-09-24] MEDS: MORPHINE SULFATE INJ 2 MG/ML DISP.SYRIN IV PRN ×2 (17:59→20:56)
--- NOTE | 2020-09-24 18:30 | NUR ---
RN NOTES PT UNABLE TO VOID , C/O ABD PAIN , , RAE INSERTED PER PT REQUEST , 1800 CC URINE OUTPUT DRAINING TO THE RAE BAG .
--- NOTE | 2020-09-24 19:03 | NUR ---
RN NOTES VSS STABLE, PT AT REST , WILL ENDORSE TO R DEVELOPER NURSE FOR CONTINUITY OF CARE .
[2020-09-24 20:00] VITALS: BP 178/73
[2020-09-24] MEDS: GABAPENTIN 300 MG CAPSULE PO SCH (20:57)
[2020-09-24] MEDS: ZOLPIDEM TARTRATE 5 MG TABLET PO PRN (20:58)
[2020-09-24] MEDS ORDERED: hydrALAZINE HCL IV 20 MG VIAL IV PRN (23:00)
[2020-09-25 02:00] VITALS: BP 155/65
--- NOTE | 2020-09-25 02:15 | NUR ---
MS RN OPENING NOTES: RECEIVED PATIENT AWAKE VIA GURNEY FROM MAGALY AT 0150, A/O X4 TANZANIAN SPEAKING, NO COMPLAIN OF PAIN AND DISCOMFORT, PLACE IN IN [facility]-1 COMFORTABLY, ORIENTED TO PLACE, PATIENT IS AMBULATORY WITH SUPERVISION, ON CARDIAC DIET, WITH IV LINE AT RIGHT HAND #20SL, ON RA NO SOB OR ANY RESPIRATORY CHANGES OBSERVED, V/S C HECKE WNR, SKIN ASSESSMENT DONE, INVENTORY DONE WITH MONEY UNDER HER CARE PLEASE SEE ENDORSE INVENTORY SHEET, PERSONAL MAGNOLIA CONTRERAS TO PHARMACY, PATIENT REFUSE TO TURNOVER GOODWIN, PATIENT KEPT CLEAN AND DRY, ALL NEEDS MET, WILL CONTINUE TO MONITOR.
--- NOTE | 2020-09-25 03:12 | NUR ---
RN notes Received patient awake in bed watching TV. Alert and oriented x 4. Communicates verbally in arminian language with very little knowledge in ukrainian. Complaint of abdominal pain, morphine adminster with relief. Noted with distended abdomen, soft and tender. Noted BP 178/73. Seen taking 2 tablets of home medicine, patient said it wass amlodipine but unable to read the lable. It is written in arminian. Relayed to MD with no new order. Checked BP after an hour still high 183/83. Called MD and obtained order for hydralazine 10mg IV push, BP went down to 165/64. Transferred to [facility], endorsed to JOCELYNE mars, in stable condition.
[2020-09-25 04:00] VITALS: BP 155/65
[2020-09-25] MEDS: INSULIN REGULAR, HUMAN 100 UNIT/ML 3 ML VIAL SQ PRN ×4 (06:41→21:27)
--- NOTE | 2020-09-25 06:44 | NUR ---
RN CLOSING NOTES: PATIENT SLEEP IN BED COMFORTABLY, BED IN LOW POSITION, CALL LIGHTS WITHIN REACH, NO COMPLAIN OF PAIN AND DISCOMFORT AT THIS TIME, A/O X4 PATIENT IS TURKISH SPEAKING ON FOLY CATHETER WITH URINE OUTPUT OF 500 CC , IV LINE ON RT HAND #20 SL INFUSING WELL, NO RESP. DISTRESS WAS OBSERVED, PATIENT KEPT CLEAN AND DRY, ENDORSE TO INCOMING SHIFT.
[2020-09-25 07:25] LABS: CALCIUM, SERUM 9.4 mg/dL (8.5-10.1); CREATININE 1.1 mg/dL (0.6-1.3); POTASSIUM 4.3 mmol/L (3.5-5.1)
--- NOTE | 2020-09-25 07:45 | NUR ---
MS RN OPENING NOTES RECEIVED PT IN BED, AWAKE. PT IS AOx4, AND MALIAN SPEAKING. BREATHING IS EVEN AND UNLABORED. NO S/SX OF RESPIRATORY DISTRESS. NO SOB NOTED. IV ACCESS IN L HAND #20. IV IS PATENT, INTACT, AND FLUSHING WELL. PT HAS RAE CATHETER DRAINING CLEAR, YELLOW URINE. SAFETY MEASURES IN PLACE: BED IN LOWEST, LOCKED POSITION, BRAKES ON, SIDERAILS UP x2. CALL LIGHT AND TABLE WITHIN REACH. WILL CONTINUE TO MONITOR.
[2020-09-25 08:00] VITALS: BP 146/71
[2020-09-25] MEDS: BLOOD SUGAR DIAGNOSTIC 1 EACH STRIP IN SCH ×4 (08:03→22:09)
[2020-09-25] MEDS: ASPIRIN EC 81 MG TABLET.DR PO SCH (08:16)
[2020-09-25] MEDS: hydrALAZINE HCL 50 MG TABLET PO SCH ×2 (08:16→16:47)
[2020-09-25] MEDS: TAMSULOSIN 0.4 MG CAP.SR.24H PO SCH (08:16)
[2020-09-25] MEDS: CARVEDILOL 12.5 MG TABLET PO SCH ×2 (08:17→16:47)
[2020-09-25] MEDS: TICAGRELOR 90 MG TABLET PO SCH ×2 (08:20→16:48)
[2020-09-25] MEDS: PANTOPRAZOLE 40 MG TABLET.DR PO SCH (08:20)
[2020-09-25] MEDS: ATORVASTATIN 40 MG TABLET PO SCH (08:21)
--- NOTE | 2020-09-25 09:00 | NUR ---
RN NOTES PATIENT SEEN BY DR. BATISTA TODAY; SWITCHED RAE CATH DRAINAGE BAG TO LEG BAG AND WILL TRY TO AMBULATE PATIENT.
--- NOTE | 2020-09-25 09:14 | NUR ---
RN NOTES DR. MCKEON AT BEDSIDE TO SEE PATIENT; CURRENTLY TALKING TO MANDY OBRIEN.
[2020-09-25] MEDS ORDERED: LORAZEPAM INJ 2 MG/ML VIAL IV PRN (09:30)
--- NOTE | 2020-09-25 10:26 | NUR ---
RN NOTES ANI, DTR, AT BEDSIDE VISITING PATIENT.
--- NOTE | 2020-09-25 10:32 | NUR ---
RN NOTES URINE SPECIMEN OBTAINED FOR URINE OSMOLALITY; SPECIMEN PLACED IN REFRIGERATOR.
--- NOTE | 2020-09-25 14:37 | NUR ---
RN NOTES PATIENT'S HOME MEDICATIONS SENT TO PHARMACY PER TEST DECK SUPERVISOR RN KERRY; 3 BOTTLES SENT AND ENDORSED TO CHRISSY FROM PHARMACY. MEDICATIONS HAVE PARAGUAYAN LABELS.
[2020-09-25 16:00] VITALS: BP 152/63
--- NOTE | 2020-09-25 18:27 | NUR ---
MS RN OPENING NOTES PT IN BED, AWAKE WITH FAMILY MEMBERS, WHO TRANSLATED. PT IS AOx4, AND SENEGALESE SPEAKING. BREATHING IS EVEN AND UNLABORED. NO S/SX OF RESPIRATORY DISTRESS. NO SOB NOTED. IV ACCESS IN L HAND #20. IV IS PATENT, INTACT, AND FLUSHING WELL. RAE CATHETER DRAINING 600 ML OF CLEAR, YELLOW URINE. ALL NEEDS MET. PATIENT KEPT DRY AND CLEAN. SAFETY MEASURES IN PLACE: BED IN LOWEST, LOCKED POSITION, BRAKES ON, SIDERAILS UP x2. CALL LIGHT AND TABLE WITHIN REACH. WILL ENDORSE TO ONCOMING SHIFT.
--- NOTE | 2020-09-25 18:53 | NUR ---
RN NOTES ROOM CHANGE REQUESTED BY PATIENT'S DTR; MOVED TO ROOM 308.
--- NOTE | 2020-09-25 19:27 | NUR ---
MS RN OPENING NOTES: RECEIVED PATIENT AWAKE IN BED, BED IN LOW POSITION, CALL LIGHTS WITHIN REACH, NO COMPLAIN OF PAIN AND DISCOMFORT AT THIS TIME, PATIENT IS A/O X4 THAI SPEAKING, FAMILY ON BED SIDE, ON RA WITH NO SOB NOTED, WITH IV LINE AT R HAND #20SL ON RAE CATHETER PATIENT KEPT CLEAN AND DRY ALL NEEDS MET, WILL CONTINUE TO MONITOR.
[2020-09-25 19:56] VITALS: BP 128/61
[2020-09-25 20:00] VITALS: BP 128/61
[2020-09-25] MEDS: ZOLPIDEM TARTRATE 5 MG TABLET PO PRN (21:08)
[2020-09-25] MEDS: GABAPENTIN 300 MG CAPSULE PO SCH (21:08)
--- NOTE | 2020-09-26 06:21 | NUR ---
MS RN CLOSING NOTE: RECEIVED PATIENT SLEEP IN BED COMFORTABLY AROUSABLE TO STIMULI, BED IN LOW POSITION, CALL LIGHTS WITHIN REACH, NO COMPLAIN OF PAIN AND DISCOMFORT AT THIS TIME, PATIENT WAS OBSERVED SLEEPING WITH NO INVOLUNTARY MUSCLE MOVEMENT OBSERVED ON LOWER EXTREMITIES, BED IN LOW POSTION, CALL LIGHTS WITHIN REACH, ALL NEEDS ATTENDED, WILL CONTINUE TO MONITOR.
[2020-09-26] MEDS: INSULIN REGULAR, HUMAN 100 UNIT/ML 3 ML VIAL SQ PRN ×2 (06:49→09:23)
[2020-09-26] MEDS: PANTOPRAZOLE 40 MG TABLET.DR PO SCH (07:30)
[2020-09-26 08:00] VITALS: BP 150/83
[2020-09-26 08:18] LABS: CALCIUM, SERUM 9.6 mg/dL (8.5-10.1); CREATININE 0.7 mg/dL (0.6-1.3); POTASSIUM 4.3 mmol/L (3.5-5.1)
[2020-09-26] MEDS ORDERED: TAMS-12 PO (08:37)
[2020-09-26] MEDS: BLOOD SUGAR DIAGNOSTIC 1 EACH STRIP IN SCH (09:06)
[2020-09-26 09:07] VITALS: BP 170/92
[2020-09-26] MEDS: CARVEDILOL 12.5 MG TABLET PO SCH (09:07)
[2020-09-26] MEDS: ASPIRIN EC 81 MG TABLET.DR PO SCH (09:07)
[2020-09-26] MEDS: ATORVASTATIN 40 MG TABLET PO SCH (09:07)
[2020-09-26] MEDS: hydrALAZINE HCL 50 MG TABLET PO SCH (09:07)
[2020-09-26] MEDS: TICAGRELOR 90 MG TABLET PO SCH (09:07)
[2020-09-26] MEDS: TAMSULOSIN 0.4 MG CAP.SR.24H PO SCH (09:07)
== END 2020-09-26 11:30 | disposition home or self-care (01) | DRG 641 ==
LOC: ER 18:04 → TELE-TD 22:41 → MEDSG1 09-24 17:22 → MED 09-25 01:17
PROVIDERS: ADMIT Student in an Organized Health Care Education/Training Program; ATTEND Nurse Practitioner Acute Care
DX: E87.1 Hypo-osmolality and hyponatremia (principal); N13.30 Unspecified hydronephrosis; E66.9 Obesity, unspecified; E11.9 Type 2 diabetes mellitus without complications; I25.10 Atherosclerotic heart disease of native coronary artery without angina pectoris; I10 Essential (primary) hypertension; E78.5 Hyperlipidemia, unspecified; D50.9 Iron deficiency anemia, unspecified; E86.1 Hypovolemia; E87.6 Hypokalemia; Z20.822 Contact with and (suspected) exposure to COVID-19; Z68.30 Body mass index [BMI] 30.0-30.9, adult; R33.9 Retention of urine, unspecified; R11.2 Nausea with vomiting, unspecified; Z95.5 Presence of coronary angioplasty implant and graft; Q63.8 Other specified congenital malformations of kidney; Z79.84 Long term (current) use of oral hypoglycemic drugs
CPT/HCPCS: 36415; 71045-TC; 76770-TC; 76856-TC; 80048-TC; 80061-TC; 81001; 82570-TC; 82962-TC; 83540-TC; 83735-TC; 84100-TC; 84295-TC; 84300-TC; 84443-TC; 84484-TC; 85025-TC; 87040-TC; 87081-TC; 87086-TC; C9113; C9803; G0378; J0360; J0696; J1815; J2060; J2270; J7030; J7050; J7060; Q9967

== ENCOUNTER 2020-11-20 11:31 | Inpatient (IN) | payer MEDICARE, OTHER ==
[~2020-11-20] VITALS: Ht 157.5 cm; Wt 85.3 kg
[~2020-11-20 11:31] MED LIST changes: +TAMS-12 PO; -TRAZ-252 PO
--- NOTE | 2020-11-20 11:37 | NUR ---
TO ER BED 3, [id number] FRM HOME, C/O FEELING DIZZY AND WEAK SINCE YESTERDAY. AAOX3, BREATHING EVEN AND NON LABORED, CHANGED INTO A GOWN AND ATTACHED TO MONITOR. SEEN BY
[2020-11-20] MEDS ORDERED: NITROGLYCERIN PACKET 1 GM PACKET ONE (11:59)
[2020-11-20] MEDS ORDERED: ASPIRIN 81 MG TAB.CHEW ONE (11:59)
[2020-11-20] MEDS ORDERED: ASPIRIN 81 MG TAB.CHEW PO ONE (12:00)
[2020-11-20] MEDS ORDERED: IV NS 0.9% 500 ML BAG IV ONE (12:00)
[2020-11-20] MEDS ORDERED: NITROGLYCERIN PACKET 1 GM PACKET TD ONE (12:00)
[2020-11-20 12:21] LABS: BASOPHILS % (AUTO) 0.5 % (0.0-2.0); EOSINOPHILS % (AUTO) 0.1 % (0.0-6.0); HEMATOCRIT 33 % (33-45); HEMOGLOBIN 11.3 g/dL (11.5-14.8); LYMPHOCYTES # (AUTO) 1.1 K/uL (0.8-4.8); LYMPHOCYTES % (AUTO) 14.3 % (20.0-44.0); MEAN CORPUSCULAR HGB CONC 34 g/dl (31.0-36.0); MEAN CORPUSCULAR VOLUME 82 fL (82-100); MONOCYTES # (AUTO) 0.6 K/uL (0.1-1.30); MONOCYTES % (AUTO) 7.3 % (2.0-12.0); NEUTROPHILS # (AUTO) 5.9 K/uL (1.8-8.9); NEUTROPHILS % (AUTO) 77.8 % (43.0-81.0); PLATELET COUNT (AUTO) 423 K/uL (150-450); WHITE BLOOD COUNT (AUTO) 7.6 K/uL (4.3-11.0)
--- NOTE | 2020-11-20 12:24 | NUR ---
COVID SWAB DONE AND SENT TO THE LAB
--- NOTE | 2020-11-20 13:01 | NUR ---
DAUGHTER CAMILLE AT BEDSIDE, GIVEN UPDATE RE HER MOM
[2020-11-20 13:07] LABS: CARBON DIOXIDE 22 mmol/L (21-32); CHLORIDE 88 mmol/L (98-107); CREATININE 0.6 mg/dL (0.6-1.3); GLUCOSE 156 mg/dL (74-106); POTASSIUM 3.3 mmol/L (3.5-5.1); SODIUM SERUM 125 mmol/L (136-145); UREA NITROGEN, BLOOD 10 mg/dL (7-18)
[2020-11-20 13:19] LABS: CALCIUM, SERUM 8.9 mg/dL (8.5-10.1)
[2020-11-20] MEDS ORDERED: ATOR40TA PO (13:58)
[2020-11-20] MEDS ORDERED: HYDROCODONE/APAP 5/325MG TABLET PO PRN (14:00)
[2020-11-20] MEDS ORDERED: ACETAMINOPHEN 325 MG TABLET PO PRN (14:00)
[2020-11-20] MEDS ORDERED: Z GUARD REMEDY 2 OZ OINT TP PRN (14:00)
[2020-11-20] MEDS ORDERED: ZOLPIDEM TARTRATE 5 MG TABLET PO PRN (14:00)
[2020-11-20] MEDS ORDERED: ONDANSETRON HCL/PF 4 MG/2 ML VIAL IVP PRN (14:00)
[2020-11-20] MEDS ORDERED: MAG HYDROX/AL HYDROX/SIMETH 30 ML UDC PO PRN (14:00)
[2020-11-20] MEDS ORDERED: DEXTROSE 50%-WATER 50 ML DISP.SYRIN IV PRN (14:00)
[2020-11-20] MEDS ORDERED: MAGNESIUM HYDROXIDE 30 ML UDC PO PRN (14:00)
[2020-11-20] MEDS ORDERED: MORPHINE SULFATE INJ 2 MG/ML DISP.SYRIN IV PRN (14:00)
[2020-11-20] MEDS ORDERED: IV NS 0.9% 1,000 ML IV PRN (14:00)
[2020-11-20] MEDS ORDERED: AMLO-213 PO (14:00)
[2020-11-20] MEDS ORDERED: HOME MED MISCELLANEOUS XX SCH ×2 (14:30)
[2020-11-20] MEDS ORDERED: LORAZEPAM 0.5 MG TABLET PO PRN (17:30)
[2020-11-20] MEDS ORDERED: POTASSIUM CHLORIDE 20 MEQ POWDER PACKET PO ONE (17:30)
[2020-11-20] MEDS: CARVEDILOL 12.5 MG TABLET PO SCH (17:55)
[2020-11-20] MEDS: ENOXAPARIN SODIUM 40 MG/0.4 ML DISP.SYRIN SQ SCH (18:05)
[2020-11-20] MEDS ORDERED: ENOXAPARIN SODIUM 40 MG/0.4 ML DISP.SYRIN SQ ONE (18:06)
[2020-11-20] MEDS ORDERED: POTASSIUM CHLORIDE 20 MEQ POWDER PACKET ONE (18:06)
[2020-11-20] MEDS ORDERED: CARVEDILOL 12.5 MG TABLET ONE (18:06)
[2020-11-20] MEDS: INSULIN REGULAR, HUMAN 100 UNIT/ML 3 ML VIAL SQ PRN ×2 (18:18→23:23)
[2020-11-20] MEDS ORDERED: INSULIN REGULAR, HUMAN 100 UNIT/ML 10 ML VIAL ONE (18:19)
--- NOTE | 2020-11-20 19:25 | NUR ---
REPORT GIVEN TO PARRISH CASANOVA FOR JOHANNA
[2020-11-20 20:00] VITALS: BP 134/93
--- NOTE | 2020-11-20 21:00 | NUR ---
MS COMMERCIAL MORTGAGE BROKER NOTES: RECEIVED PATEINT AWAKE VIA GURNEY FORM ER TRANSFER TO 327-1 ON STABLE CONDITION, PALCE IN BED COMFORTABLY, ORIENTED TO PLACE SKIN ASSESSMENT DONE, PICTURE TAKEN, INVENTORY DONE DOCUMENTED AND SIGNED, PATIENT IS A/O X4 MALAYSIAN SPEAKING ABLE TO EXPRESS NEEDS WITH IV STERLING AT RIGHT WRIST WITH ONGOING IV OF 0.5XZV098MB PER HR INFUSING WELL, DAUGHTER ON BEDSIDE ACTED MECHANICAL ENGINEERING SPECIALIST, PATIENT WAS RSPONSIVE TO QUESTION, PATIENT ON RA SATURATING AT 97% NO SOB OR ANY RESPIRATORY DISTRESS OBSERVED, PATIENT KEPT CLEAN AND DRY ALL NEEDS MET, DUE MEDICATION GIVEN, WILL CONTINUE TO MONITOR.
[2020-11-20] MEDS: BLOOD SUGAR DIAGNOSTIC 1 EACH STRIP IN SCH ×2 (22:00→23:18)
[2020-11-20] MEDS: ATORVASTATIN 40 MG TABLET PO SCH (22:05)
[2020-11-20] MEDS: TAMSULOSIN 0.4 MG CAP.SR.24H PO SCH (22:05)
[2020-11-20] MEDS: GABAPENTIN 300 MG CAPSULE PO SCH (22:05)
[2020-11-20] MEDS: hydrALAZINE HCL 50 MG TABLET PO SCH (22:06)
[2020-11-21 01:09] VITALS: BP 134/93
[2020-11-21] MEDS: INSULIN REGULAR, HUMAN 100 UNIT/ML 3 ML VIAL SQ PRN ×4 (06:35→23:06)
[2020-11-21 06:41] LABS: BASOPHILS % (AUTO) 0.6 % (0.0-2.0); EOSINOPHILS % (AUTO) 0.8 % (0.0-6.0); HEMATOCRIT 33 % (33-45); HEMOGLOBIN 11.2 g/dL (11.5-14.8); LYMPHOCYTES # (AUTO) 1.4 K/uL (0.8-4.8); LYMPHOCYTES % (AUTO) 20.1 % (20.0-44.0); MEAN CORPUSCULAR HGB CONC 34 g/dl (31.0-36.0); MEAN CORPUSCULAR VOLUME 82 fL (82-100); MONOCYTES # (AUTO) 0.6 K/uL (0.1-1.30); MONOCYTES % (AUTO) 8.8 % (2.0-12.0); NEUTROPHILS # (AUTO) 4.7 K/uL (1.8-8.9); NEUTROPHILS % (AUTO) 69.7 % (43.0-81.0); PLATELET COUNT (AUTO) 471 K/uL (150-450); RED BLOOD CELL COUNT(AUTO) 4.05 MIL/uL (4.0-5.2); WHITE BLOOD COUNT (AUTO) 6.7 K/uL (4.3-11.0)
--- NOTE | 2020-11-21 07:08 | NUR ---
RN CLOSING NOTES; PATIENT WAS AWAKE IN BED, BED IN LOW POSITION, CALL LIGHTS WITHIN REACH, NO COMPLAIN OF PAIN AND DISCOMFORT AT THIS TIME, A/OX4 SAO TOMEAN SPEAKING AND ABLE TO EXPRESS NEEDS, WITH RT WRIST IV STERLING WITH ONGOING NSS@75ML.HR INFUSING WELL, PATIENT IS AMBULATORY WITH SUPERVISION, STEADY WALKING FOR PT EVALUATION BUT PATIENT INSIST IN GOING TO BATHROOM, PATIENT KEPT CLEAN AND DRY, ALL NEEDS MET, ENDORSED TO INCOMING SHIFT.
[2020-11-21 07:17] LABS: CREATININE 0.6 mg/dL (0.6-1.3); MAGNESIUM 1.9 mg/dL (1.8-2.4); PHOSPHORUS 2.9 mg/dL (2.5-4.9); POTASSIUM 3.8 mmol/L (3.5-5.1)
[2020-11-21 07:27] LABS: THYROID STIMULATING HORMONE 1.307 uIU/mL (0.358-3.74); URIC ACID 4.4 mg/dL (2.6-7.2)
[2020-11-21] MEDS: BLOOD SUGAR DIAGNOSTIC 1 EACH STRIP IN SCH ×4 (07:29→22:00)
--- NOTE | 2020-11-21 07:29 | NUR ---
MS RN OPENING NOTES RECEIVED PATIENT RESTING IN BED. PATIENT IS A/O X4 ABLE TO MAKE NEEDS KNOWN. PATIENT IS BREATHING EVENLY AND NONLABORED ON ROOM AIR. NO SIGNS OF DISTRESS NOTED. PATIENT DOES NOT COMPLAIN OF PAIN OR DISCOMFORT AT THIS TIME. PATIENT HAS IV ACCESS TO R WRIST RUNNING NS @ 75ML/HR, PATENT AND INTACT. SAFETY MEASURES IN PLACE, BED LOW LOCKED AND CALL LIGHT WITHIN REACH. WILL CONTINUE TO MONITOR
[2020-11-21 08:00] VITALS: BP 148/61
[2020-11-21] MEDS: AMLODIPINE BESYLATE 10 MG TABLET PO SCH (08:12)
[2020-11-21] MEDS: PANTOPRAZOLE 40 MG TABLET.DR PO SCH (08:12)
[2020-11-21] MEDS: ASPIRIN EC 81 MG TABLET.DR PO SCH (08:12)
[2020-11-21] MEDS: hydrALAZINE HCL 50 MG TABLET PO SCH ×2 (08:13→22:10)
[2020-11-21] MEDS: CARVEDILOL 12.5 MG TABLET PO SCH ×2 (08:13→16:24)
--- NOTE | 2020-11-21 09:10 | NUR ---
RN NOTE MD AT BEDSIDE ORDERED FOR UA AND ONE TIME ORDER FOR IN AND OUT CATHETERIZATION TO OBTAIN SPECIMEN. STRAIGHT CATH PERFORMED. 500 ML OUT, PATIENT TOLERATED WELL. SPECIMEN OBTAINED AND PLACE IN REFRIGERATOR FOR STONE POLISHER. WILL CONTINUE TO MONITOR
[2020-11-21 10:06] LABS: BILIRUBIN,URINE NEGATIVE (NEGATIVE); LEUKOCYTE ESTERASE ,URINE NEGATIVE (NEGATIVE); NITRITE, URINE NEGATIVE (NEGATIVE); PROTEIN,URINE NEGATIVE (NEGATIVE); UGLUCOSE 100 MG/DL mg/dL (NEGATIVE); UROBILINOGEN,URINE 0.2 EU/dL (0.2)
[2020-11-21 10:07] LABS: COLOR,URINE STRAW (YELLOW)
[2020-11-21 12:22] LABS: BACTERIA,URINE Rare /HPF (None Seen); RBC,URINE 0-2 /HPF (0-2); SQUAMOUS EPITHELIAL CELL,UR Few /HPF (None Seen); WBC,URINE 0-2 /HPF (0-3)
[2020-11-21 16:00] VITALS: BP 154/69
--- NOTE | 2020-11-21 18:20 | NUR ---
MS RN CLOSING NOTES PATIENT RESTING IN BED. PATIENT IS A/O X4 ABLE TO MAKE NEEDS KNOWN. PATIENT IS BREATHING EVENLY AND NONLABORED ON ROOM AIR. NO SIGNS OF DISTRESS NOTED. PATIENT DOES NOT COMPLAIN OF PAIN OR DISCOMFORT AT THIS TIME. PATIENT HAS IV ACCESS TO R WRIST RUNNING NS @ 75ML/HR, PATENT AND INTACT. ALL MEDICATIONS GIVEN ORDERED. SAFETY MEASURES IN PLACE, BED LOW LOCKED AND CALL LIGHT WITHIN REACH. WILL ENDORSE TO ONCOMING SHIFT
--- NOTE | 2020-11-21 19:28 | NUR ---
MS RN OPENING NOTES: PATIENT WAS PLACED IN BED COMFORTABLY, BED IN LOW POSITION CALL LIGHTS WITHIN REACH NO COMPLAIN OF PAIN AND DISCOMFORT AT THIS TIME, WITH IV LINE AT RT WRSIT ON NSS@75ML PER HOUR INFUSING WELL, PATIENT IS A/OX4 ESTONIAN SPEAKING, AMBULATORY WITH SUPERVISION, ON RA NO SOB WAS OBSERVED, PATIENT KEPT CLEAN AND DRY ALL NEEDS MET, WILL CONTINUE TO MONITOR.
[2020-11-21 20:33] VITALS: BP 142/76
[2020-11-21] MEDS: GABAPENTIN 300 MG CAPSULE PO SCH (22:09)
[2020-11-21] MEDS: TAMSULOSIN 0.4 MG CAP.SR.24H PO SCH (22:09)
[2020-11-21] MEDS: ATORVASTATIN 40 MG TABLET PO SCH (22:09)
[2020-11-21] MEDS: ENOXAPARIN SODIUM 40 MG/0.4 ML DISP.SYRIN SQ SCH (22:11)
[2020-11-22] MEDS: PANTOPRAZOLE 40 MG TABLET.DR PO SCH (07:25)
--- NOTE | 2020-11-22 07:30 | NUR ---
MS RN OPENING NOTE RECEIVED PT AWAKE IN BED. A/O X4. PT IS STABLE ON ROOM AIR WITH NO SOB OR S/S OF RESPIRATORY DISTRESS NOTED. PT HAS NO C/O PAIN OR DISCOMFORT AT THIS TIME. IV ACCESS IN RIGHT WRIST #18 INFUSING NS @ 75ML/HR, INTACT AND PATENT. SAFETY PRECAUTIONS MAINTAINED. BED IN LOWEST LOCKED POSITION, HOB ELEVATED, SIDE RAILS UP X2. CALL LIGHT AND TABLE WITHIN REACH. WILL CONTINUE WITH PLAN OF CARE.
[2020-11-22] MEDS: INSULIN REGULAR, HUMAN 100 UNIT/ML 3 ML VIAL SQ PRN ×2 (07:41→11:33)
[2020-11-22 08:00] VITALS: BP 155/75
--- NOTE | 2020-11-22 08:00 | NUR ---
RN CLOSING NOTES: PATIENT AWAKE IN BED, BED IN LOW POSITION, CALL LIGHTS WITHIN REACH, NO COMPLAIN OF PAIN AND DISCOMFORT, NON RA NO SOB WAS OBSERVED PATIENT IS A/OX4 OCCITAN SPEAKING, WITH IV LINE AT L WRIST ON 0.9NSS@75ML PER HOUR INFUSING WELL. PATIENT KEPT CLEAN AND DRY, ALL NEEDS MET, ENDORSE TO INCOMING SHIFT.
[2020-11-22 08:08] LABS: CALCIUM, SERUM 8.5 mg/dL (8.5-10.1); CREATININE 0.6 mg/dL (0.6-1.3); POTASSIUM 4.2 mmol/L (3.5-5.1)
[2020-11-22] MEDS: BLOOD SUGAR DIAGNOSTIC 1 EACH STRIP IN SCH ×2 (08:16→11:30)
[2020-11-22] MEDS: ASPIRIN EC 81 MG TABLET.DR PO SCH (08:40)
[2020-11-22] MEDS: hydrALAZINE HCL 50 MG TABLET PO SCH (08:40)
[2020-11-22] MEDS: AMLODIPINE BESYLATE 10 MG TABLET PO SCH (08:40)
[2020-11-22] MEDS: CARVEDILOL 12.5 MG TABLET PO SCH (08:41)
--- NOTE | 2020-11-22 14:30 | NUR ---
RN NOTE PERFORMED BLADDER SCAN PER ORDER. PVR=0ML.
[2020-11-22 16:00] VITALS: BP 134/50
--- NOTE | 2020-11-22 16:43 | NUR ---
MS DIRECTOR FURNITURE NOTE PT DISCHARGED HOME WITH SELF CARE AT THIS TIME. PT IS MEDICALLY STABLE AND CLEARED FOR DISCHARGE BY TOD MCKEON. ALL PT CARE, NEEDS, MEDICATIONS, AND TREATMENT ADMINISTERED PER ORDER. DISCHARGE INSTRUCTIONS PROVIDED TO PT. PT VERBALIZED UNDERSTANDING. PT KEPT CLEAN AND DRY. IV ACCESS REMOVED, PRESSURE APPLIED, AND SECURED WITH GAUZE AND TAPE. NO SIGNS OF BLEEDING NOTED. ID BAND REMOVED. PT TRANSPORTED TO [facility] VIA WHEELCHAIR, ACCOMPANIED BY SOCIAL SERVICESRenato MAURER AND PT'S DAUGHTER. CHARGE NURSE CHRISTI AND TOD MCKEON AWARE.
== END 2020-11-22 16:39 | disposition home or self-care (01) | DRG 641 ==
LOC: ER 11:33 → TRANSITION 17:06 → UNDOADMIN 17:06 → MED 19:24
PROVIDERS: ADMIT Nurse Practitioner Acute Care; ATTEND Nurse Practitioner Acute Care
DX: E87.1 Hypo-osmolality and hyponatremia (principal); E86.1 Hypovolemia; E87.6 Hypokalemia; I25.10 Atherosclerotic heart disease of native coronary artery without angina pectoris; K58.9 Irritable bowel syndrome, unspecified; K21.9 Gastro-esophageal reflux disease without esophagitis; E66.9 Obesity, unspecified; E11.9 Type 2 diabetes mellitus without complications; E78.5 Hyperlipidemia, unspecified; I10 Essential (primary) hypertension; Z95.5 Presence of coronary angioplasty implant and graft; Z68.34 Body mass index [BMI] 34.0-34.9, adult; Z79.84 Long term (current) use of oral hypoglycemic drugs; Z20.822 Contact with and (suspected) exposure to COVID-19
CPT/HCPCS: 36415; 71045-TC; 80048-TC; 80061-TC; 81001; 82962-TC; 83735-TC; 83880; 84100-TC; 84443-TC; 84484-TC; 84550-TC; 85025-TC; 85730-TC; 87081-TC; 97116-TC; 97530-TC; C9803; G0378; J1650; J1815; J7030; J7040

== ENCOUNTER → 2021-01-22 | Emergency (ER) | payer MEDICARE, OTHER ==
[~2021-01-22] VITALS: Ht 160 cm; Wt 86.2 kg
[~2021-01-22] MED LIST changes: +AMLO-213 PO; +IV NS 0.9% 500 ML BAG IV ONE; +MECLIZINE HCL 12.5 MG TABLET PO ONE; +MECLIZINE HCL 25 MG TABLET ONE
--- NOTE | 2021-01-22 12:32 | NUR ---
REINA 87 FROM HOME C/O DIZZINESS THIS MORNING. EMS STATED HER SON IS CONCERNED ABOUT HER SODIUM LEVEL. PT BREATHING IS REGULAR AND UNLABORED. PT ATTCHED TO MONITOR.
--- NOTE | 2021-01-22 13:13 | NUR ---
DAUGHTER IS AT [facility]
[2021-01-22 13:14] LABS: BASOPHILS # (AUTO) 0.1 K/uL (0.0-0.2); BASOPHILS % (AUTO) 0.8 % (0.0-2.0); EOSINOPHILS % (AUTO) 0.6 % (0.0-6.0); HEMATOCRIT 38 % (33-45); HEMOGLOBIN 12.6 g/dL (11.5-14.8); LYMPHOCYTES # (AUTO) 1.2 K/uL (0.8-4.8); LYMPHOCYTES % (AUTO) 12.6 % (20.0-44.0); MEAN CORPUSCULAR HGB CONC 33 g/dl (31.0-36.0); MEAN CORPUSCULAR VOLUME 84 fL (82-100); MONOCYTES # (AUTO) 0.5 K/uL (0.1-1.30); MONOCYTES % (AUTO) 5.2 % (2.0-12.0); NEUTROPHILS # (AUTO) 7.5 K/uL (1.8-8.9); NEUTROPHILS % (AUTO) 80.8 % (43.0-81.0); PLATELET COUNT (AUTO) 432 K/uL (150-450); RED BLOOD CELL COUNT(AUTO) 4.48 MIL/uL (4.0-5.2); WHITE BLOOD COUNT (AUTO) 9.3 K/uL (4.3-11.0)
[2021-01-22 14:26] LABS: CALCIUM, SERUM 9.5 mg/dL (8.5-10.1); CARBON DIOXIDE 22 mmol/L (21-32); CHLORIDE 95 mmol/L (98-107); CREATININE 0.7 mg/dL (0.6-1.3); GLUCOSE 115 mg/dL (74-106); POTASSIUM 3.8 mmol/L (3.5-5.1); SODIUM SERUM 131 mmol/L (136-145); UREA NITROGEN, BLOOD 12 mg/dL (7-18)
[2021-01-22 14:31] LABS: ALANINE AMINOTRANSFERASE 15 U/L (12-78); ALBUMIN 3.7 g/dL (3.4-5.0); ALKALINE PHOSPHATASE 65 U/L (46-116); ASPARTATE AMINOTRANSFERASE 17 U/L (15-37); BILIRUBIN,DIRECT 0.1 mg/dL (0.0-0.2); BILIRUBIN,TOTAL 0.3 mg/dL (0.2-1.0); TOTAL PROTEIN, SERUM 7.7 g/dL (6.4-8.2)
[2021-01-22 15:34] VITALS: BP 137/66
[2021-01-22 18:01] LABS: BILIRUBIN,URINE NEGATIVE (NEGATIVE); COLOR,URINE YELLOW (YELLOW); LEUKOCYTE ESTERASE ,URINE NEGATIVE (NEGATIVE); NITRITE, URINE NEGATIVE (NEGATIVE); PROTEIN,URINE 30 mg/dl (NEGATIVE); UGLUCOSE NEGATIVE (NEGATIVE); UROBILINOGEN,URINE 0.2 EU/dL (0.2)
[2021-01-22 18:17] LABS: BACTERIA,URINE Few /HPF (None Seen); RBC,URINE 0-2 /HPF (0-2); SQUAMOUS EPITHELIAL CELL,UR Few /HPF (None Seen); WBC,URINE 0-2 /HPF (0-3)
== END | disposition home or self-care (01) ==
LOC: ER 12:34
DX: R42 Dizziness and giddiness (principal); E87.1 Hypo-osmolality and hyponatremia; I10 Essential (primary) hypertension; E11.9 Type 2 diabetes mellitus without complications; Z79.82 Long term (current) use of aspirin; Z79.899 Other long term (current) drug therapy
CPT/HCPCS: 36415; 70450; 71045; 80048; 80076; 81001; 84484; 85025; 93005; 99285; J7040; J8597